=== PATIENT | male | born 2000 | race Caucasian/White ===

== ENCOUNTER 2019-06-02 14:59 | Emergency (ER) | payer SELFPAY ==
[~2019-06-02] VITALS: Ht 175.3 cm; Wt 81.6 kg
[2019-06-02 15:10] VITALS: BP 165/77
--- NOTE | 2019-06-02 15:28 | NUR ---
18 Y/O MALE C/O FEVER SINCE THIS MORNING. STATES MOTHER WAS COVID-19 POSITIVE. RR EVEN AND UNLABORED. DENIES PAIN. DENIES SOB/COUGH. DENIES N/V/D. VSS
--- NOTE | 2019-06-02 15:30 | NUR ---
DR POLO EXAMINING PT
[2019-06-02 16:11] VITALS: BP 165/77
--- NOTE | 2019-06-02 16:12 | NUR ---
Patient discharged with v/s stable. Written and verbal after care instructions given and explained. Patient alert, oriented and verbalized understanding of instructions. Ambulatory with steady gait. All questions addressed prior to discharge. ID band removed. Patient advised to follow up with PMD. Rx of IBUPROFEN AND ACETAMINOPHEN given. Patient educated on indication of medication including possible reaction and side effects. Opportunity to ask questions provided and answered.
== END 2019-06-02 16:12 | disposition home or self-care (01) ==
LOC: EEVIPCON 14:59 → MED 14:59
DX: R50.9 Fever, unspecified (principal); Z20.828 Contact with and (suspected) exposure to other viral communicable diseases
CPT/HCPCS: 99282; 99283

== ENCOUNTER 2020-11-02 17:45 | Emergency (ER) | payer SELFPAY ==
[~2020-11-02] VITALS: Ht 172.7 cm; Wt 81.6 kg
[2020-11-02 18:20] VITALS: BP 139/71
--- NOTE | 2020-11-02 18:23 | NUR ---
PT SENT TO LOBBY
[2020-11-02] MEDS ORDERED: ONDANSETRON 4 MG ODT PO ONE (18:25)
--- NOTE | 2020-11-02 22:02 | NUR ---
PT LWBS [id number]
== END 2020-11-02 20:47 | disposition left against medical advice (07) ==
LOC: MED 17:45
DX: R10.9 Unspecified abdominal pain (principal); R11.10 Vomiting, unspecified; Z53.21 Procedure and treatment not carried out due to patient leaving prior to being seen by health care provider

== ENCOUNTER 2022-08-27 08:13 | Emergency (ER) | payer MEDICAID ==
[~2022-08-27] VITALS: Ht 172.7 cm; Wt 79.4 kg
[2022-08-27 08:30] VITALS: BP 126/85; PULSE 61; RESP 17; TEMP 98.4; O2SAT 100
--- NOTE | 2022-08-27 08:32 | NUR ---
PT AMBULATORY TO BED 03
[2022-08-27 08:35] VITALS: O2SAT 100
--- NOTE | 2022-08-27 08:35 | NUR ---
21YO MALE PT C/O N/V/D-blood X1DAY. REPORTS SUDDEN ONSET. ABD NON TENDER OR DISTENDED. DENIES FEVER, CHILLS OR CHANGE IN DIET. PT AAOX4, HOB POSITIONED PER COMFORT. CALL LIGHT WITHIN REACH HX:DENIES NKA
--- NOTE | 2022-08-27 08:39 | NUR ---
MD GUSMAN AT BEDSIDE FOR EVALUATION
[2022-08-27] MEDS ORDERED: ONDA-188 SL (08:45)
[2022-08-27] MEDS ORDERED: ATRO1TAB PO (08:45)
[2022-08-27 08:47] VITALS: O2SAT 100
--- NOTE | 2022-08-27 08:51 | NUR ---
Patient discharged with v/s stable. Written and verbal after care instructions FOR VIRAL GASTROENTERITIS given and explained. Patient alert, oriented and verbalized understanding of instructions. Ambulatory with steady gait. All questions addressed prior to discharge. ID band removed. Patient advised to follow up with PMD. Rx of ZOFRAN ODT AND LOMOTIL given. Opportunity to ask questions provided and answered. WORK NOTE PROVIDED
--- NOTE | 2022-08-27 09:14 | NUR ---
The patient's care was reviewed and supervised by [facility], RN.
== END 2022-08-27 08:51 | disposition home or self-care (01) ==
LOC: MED 08:13
DX: R10.9 Unspecified abdominal pain (principal); R11.2 Nausea with vomiting, unspecified; R19.7 Diarrhea, unspecified; Z79.899 Other long term (current) drug therapy
CPT/HCPCS: 99283